=== PATIENT | female | born 1985 | race African-American/Black ===

== ENCOUNTER 2020-10-11 11:20 | Emergency (ER) | payer OTHER ==
[~2020-10-11] VITALS: Ht 165.1 cm; Wt 77.3 kg
[2020-10-11] MEDS ORDERED: IBUPROFEN 600 MG TABLET PO ONE (12:00)
[2020-10-11 12:50] VITALS: BP 128/67
== END 2020-10-11 13:00 | disposition home or self-care (01) ==
LOC: EMS 11:35
DX: S83.8X2A Sprain of other specified parts of left knee, initial encounter (principal); F12.90 Cannabis use, unspecified, uncomplicated; F17.210 Nicotine dependence, cigarettes, uncomplicated; V49.9XXA Car occupant (driver) (passenger) injured in unspecified traffic accident, initial encounter; Y93.89 Activity, other specified; Y92.413 State road as the place of occurrence of the external cause; Y99.8 Other external cause status

== ENCOUNTER 2021-05-31 08:52 | Emergency (ER) | payer OTHER ==
[~2021-05-31] VITALS: Ht 162.6 cm; Wt 91.8 kg
[2021-05-31 09:27] LABS: BASOPHILS % (AUTO) 0.9 % (0.0-2.0); EOSINOPHILS % (AUTO) 0.7 % (1.0-6.0); HEMOGLOBIN 12.1 g/dL (12.0-16.0); LYMPHOCYTES # (AUTO) 3.6 K/uL (1.0-4.8); LYMPHOCYTES % (AUTO) 32.7 % (22.0-44.0); MEAN CORPUSCULAR HEMOGLOBIN 27.8 pg (26.0-34.0); MEAN CORPUSCULAR HGB CONC 32.7 G/dL (31.0-37.0); MEAN CORPUSCULAR VOLUME 85 fL (80-100); MONOCYTES # (AUTO) 0.6 K/uL (0.1-1.0); MONOCYTES % (AUTO) 5.4 % (2.0-9.0); NEUTROPHILS # (AUTO) 6.6 K/uL (1.8-7.7); NEUTROPHILS % (AUTO) 60.3 % (40.0-70.0); PLATELET COUNT (AUTO) 281 K/uL (150-450); RED BLOOD CELL COUNT(AUTO) 4.36 MIL/uL (4.00-5.20); RED CELL DISTRIBUTION WIDTH 15.5 % (11.5-14.5)
[2021-05-31 09:37] LABS: ANION GAP 9 mmol/L (8-16); CALCIUM, TOTAL 8.7 mg/dL (8.8-10.5); CARBON DIOXIDE 29 mmol/L (22-29); CHLORIDE 106 mmol/L (98-107); CREATININE 0.91 mg/dL (0.60-1.30); GLOMERULAR FILTR. RATE CALC > 60 mL/min (>60); GLUCOSE,RANDOM 106 mg/dL (70-110); SODIUM SERUM 144 mmol/L (136-145); UREA NITROGEN, BLOOD 12 mg/dL (7-18)
[2021-05-31 09:50] LABS: APPEARANCE,URINE CLEAR (CLEAR); BILIRUBIN,URINE NEGATIVE (NEGATIVE); GLUCOSE, URINE (UA) NEGATIVE (NEGATIVE); KETONES,URINE NEGATIVE (NEGATIVE); LEUKOCYTE ESTERASE ,URINE LARGE (NEGATIVE); NITRATE,URINE NEGATIVE (NEGATIVE); OCCULT BLOOD,URINE MODERATE (NEGATIVE); PROTEIN,URINE NEGATIVE (NEGATIVE); UROBILINOGEN,URINE 0.2 mg/dL (<=1.0)
[2021-05-31 09:50] LABS: ALANINE AMINOTRANSFERASE 31 U/L (12-78); ALBUMIN 3.5 g/dL (3.4-5.0); ALKALINE PHOSPHATASE 73 U/L (46-116); ASPARTATE AMINOTRANSFERASE 22 U/L (15-37); BILIRUBIN,TOTAL 0.2 mg/dL (0.1-1.0); HCG,QUANTITATIVE < 1 mIU/mL (0-6); LIPASE 92 U/L (73-393); TOTAL PROTEIN, SERUM 7.6 g/dL (6.4-8.2)
[2021-05-31] MEDS ORDERED: KETOROLAC TROMETHAMINE 30 MG/ML VIAL IVP ONE (10:00)
[2021-05-31] MEDS ORDERED: IOHEXOL 350 MG/ML 100 ML VIAL ONE (10:13)
[2021-05-31] MEDS ORDERED: SODIUM CHLORIDE 0.9% 100 ML ONE (10:13)
[2021-05-31 10:19] LABS: BACTERIA,URINE Few /HPF (None Seen); SQUAMOUS EPITHELIAL CELL,UR Moderate /LPF (None Seen)
[2021-05-31 10:50] VITALS: BP 129/65
[2021-05-31 12:17] LABS: APPEARANCE,URINE CLEAR (CLEAR); BILIRUBIN,URINE NEGATIVE (NEGATIVE); GLUCOSE, URINE (UA) NEGATIVE (NEGATIVE); KETONES,URINE NEGATIVE (NEGATIVE); LEUKOCYTE ESTERASE ,URINE NEGATIVE (NEGATIVE); NITRATE,URINE NEGATIVE (NEGATIVE); OCCULT BLOOD,URINE TRACE (NEGATIVE); PROTEIN,URINE NEGATIVE (NEGATIVE); UROBILINOGEN,URINE 0.2 mg/dL (<=1.0)
[2021-05-31 12:41] LABS: RBC,URINE 0-2 /HPF (0-2)
[2021-05-31 12:42] LABS: BACTERIA,URINE None Seen /HPF (None Seen); SQUAMOUS EPITHELIAL CELL,UR Rare /LPF (None Seen); WBC,URINE None Seen /HPF (0-5)
[2021-05-31] MEDS ORDERED: AZITHROMYCIN 500 MG TABLET PO ONE (12:45)
[2021-05-31] MEDS ORDERED: CefTRIAXone SODIUM 1 GM/VIAL IM ONE (12:45)
[2021-05-31] MEDS ORDERED: LIDOCAINE/PF 1% 2 ML VIAL IM ONE (12:45)
== END 2021-05-31 14:22 | disposition left against medical advice (07) ==
LOC: EMS 08:54
DX: N83.9 Noninflammatory disorder of ovary, fallopian tube and broad ligament, unspecified (principal); F17.210 Nicotine dependence, cigarettes, uncomplicated; F12.90 Cannabis use, unspecified, uncomplicated
CPT/HCPCS: 36415; 74177; 76856; 80053; 81001; 81002; 83690; 84702; 85025; 87077; 87086; 87186; 87491; 87591; 96372; 96374; 99285; A9575; J0696; J1885; J3490; J7050

== ENCOUNTER → 2024-07-10 | Emergency (ER) | payer OTHER ==
[~2024-07-10] VITALS: Ht 162.6 cm; Wt 86.4 kg
[~2024-07-10] MED LIST: CEPH-558 PO
[2024-07-10 12:54] VITALS: BP 104/67; PULSE 120; RESP 18; TEMP 97.9
== END | disposition left against medical advice (07) ==
LOC: EMS 12:27
DX: S01.81XA Laceration without foreign body of other part of head, initial encounter (principal); Z53.21 Procedure and treatment not carried out due to patient leaving prior to being seen by health care provider; Y04.0XXA Assault by unarmed brawl or fight, initial encounter; Y93.89 Activity, other specified; Y92.89 Other specified places as the place of occurrence of the external cause; Y99.8 Other external cause status

== ENCOUNTER 2024-07-11 23:44 | Emergency (ER) | payer OTHER ==
[~2024-07-11] VITALS: Ht 162.6 cm; Wt 86.4 kg
[2024-07-11 23:51] VITALS: BP 105/70; PULSE 89; RESP 20; TEMP 97.5
[2024-07-12] MEDS: TraMADol HCL 50 MG TABLET PO ONE (02:53)
[2024-07-12 03:08] LABS: APPEARANCE,URINE CLEAR (CLEAR); BILIRUBIN,URINE NEGATIVE (NEGATIVE); COLOR,URINE LIGHT YELLOW (YELLOW); GLUCOSE, URINE (UA) NEGATIVE (NEGATIVE); KETONES,URINE NEGATIVE (NEGATIVE); LEUKOCYTE ESTERASE ,URINE NEGATIVE (NEGATIVE); NITRATE,URINE NEGATIVE (NEGATIVE); PH,URINE 6.5 (5.0-8.0); PROTEIN,URINE NEGATIVE (NEGATIVE); SPECIFIC GRAVITIY, URINE 1.018 (1.003-1.030); UROBILINOGEN,URINE <=1.0 mg/dL (<=1.0)
[2024-07-12 03:14] LABS: HCG,QUAL URINE NEGATIVE (NEGATIVE); OCCULT BLOOD,URINE N (NEGATIVE)
[2024-07-12] MEDS: LIDOCAINE 1% 10 ML VIAL SQ ONE (05:01)
[2024-07-12] MEDS ORDERED: CEPH-558 PO (05:06)
[2024-07-12] MEDS: PERTUSS(ACELL),DIPH,TET/PF 0.5 ML SYRINGE [ADULT] IM. ONE (05:33)
== END 2024-07-12 05:42 | disposition home or self-care (01) ==
LOC: EMS 23:44
DX: S01.81XA Laceration without foreign body of other part of head, initial encounter (principal); S20.213A Contusion of bilateral front wall of thorax, initial encounter; F17.210 Nicotine dependence, cigarettes, uncomplicated; F12.90 Cannabis use, unspecified, uncomplicated; Z98.890 Other specified postprocedural states; Y04.8XXA Assault by other bodily force, initial encounter; Y93.89 Activity, other specified; Y92.89 Other specified places as the place of occurrence of the external cause; Y99.8 Other external cause status
CPT/HCPCS: 99285; 81003; 84703; 70450; 71111; 96372; J3490; 90715; 99284

== ENCOUNTER 2025-09-20 12:24 | Emergency (ER) | payer OTHER ==
[~2025-09-20] VITALS: Ht 162.6 cm; Wt 86.4 kg
[2025-09-20 12:26] VITALS: TEMP 98.2
[2025-09-20 12:52] LABS: PLATELET COUNT (AUTO) 299 K/uL (150-450); RED BLOOD CELL COUNT(AUTO) 4.40 MIL/uL (4.00-5.20); RED CELL DISTRIBUTION WIDTH 16.0 % (11.5-14.5); WHITE BLOOD COUNT (AUTO) 5.8 K/uL (4.5-11.0)
[2025-09-20 13:00] VITALS: BP 119/67; PULSE 73; RESP 18; O2SAT 99
[2025-09-20 13:02] LABS: APPEARANCE,URINE CLEAR (CLEAR); GLUCOSE, URINE (UA) NEGATIVE (NEGATIVE); LEUKOCYTE ESTERASE ,URINE TRACE (NEGATIVE); NITRATE,URINE POSITIVE (NEGATIVE); OCCULT BLOOD,URINE TRACE (NEGATIVE); SPECIFIC GRAVITIY, URINE 1.018 (1.003-1.030)
[2025-09-20 13:14] LABS: SQUAMOUS EPITHELIAL CELL,UR Few /LPF (None Seen)
[2025-09-20 13:18] LABS: SODIUM SERUM 138 mmol/L (136-145)
[2025-09-20 13:23] LABS: CALCIUM, TOTAL 8.6 mg/dL (8.8-10.5); CREATININE 0.97 mg/dL (0.60-1.30); GLOMERULAR FILTR. RATE CALC > 60 mL/min (>60); GLUCOSE,RANDOM 127 mg/dL (70-110); UREA NITROGEN, BLOOD 8 mg/dL (7-18)
[2025-09-20] MEDS: HYDROCODONE/ACETAMINOPHEN 5-325 MG TABLET PO ONE (14:54)
[2025-09-20] MEDS: IBUPROFEN 600 MG TABLET PO ONE (14:55)
[2025-09-20] MEDS ORDERED: HYDR-4062 PO (15:13)
[2025-09-20] MEDS ORDERED: POLY119P3 PO (15:13)
[2025-09-20] MEDS ORDERED: ONDA-104 PO (15:13)
[2025-09-20] MEDS ORDERED: IBUP-1554 PO (15:13)
== END 2025-09-20 15:32 | disposition home or self-care (01) ==
LOC: EMS 12:24
DX: R10.32 Left lower quadrant pain (principal); R30.0 Dysuria; F12.90 Cannabis use, unspecified, uncomplicated; F17.210 Nicotine dependence, cigarettes, uncomplicated; Z98.890 Other specified postprocedural states
CPT/HCPCS: 76856; 80048; 81001; 83690; 84703; 85025; 87077; 87086; 87186; 99284

== ENCOUNTER 2025-10-20 17:33 | Emergency (ER) | payer OTHER ==
[~2025-10-20] VITALS: Ht 165.1 cm; Wt 84.1 kg
[~2025-10-20 17:33] MED LIST changes: -CEPH-558 PO; +HYDR-4062 PO; +IBUP-1554 PO; +ONDA-104 PO; +POLY119P3 PO
[2025-10-20] MEDS: KETOROLAC TROMETHAMINE 30 MG/ML VIAL IM ONE (18:26)
[2025-10-20] MEDS: ACETAMINOPHEN 500 MG TABLET PO ONE (18:26)
[2025-10-20] MEDS ORDERED: IBUP-1492 PO (18:33)
[2025-10-20] MEDS ORDERED: ACET-3385 PO (18:33)
[2025-10-20 23:30] VITALS: BP 120/81; PULSE 79; RESP 16; TEMP 98.3; O2SAT 100
== END 2025-10-21 03:00 | disposition home or self-care (01) ==
LOC: EMS 17:34
DX: S93.402A Sprain of unspecified ligament of left ankle, initial encounter (principal); F17.210 Nicotine dependence, cigarettes, uncomplicated; F12.90 Cannabis use, unspecified, uncomplicated; Z98.890 Other specified postprocedural states; W10.8XXA Fall (on) (from) other stairs and steps, initial encounter; Y93.01 Activity, walking, marching and hiking; Y92.89 Other specified places as the place of occurrence of the external cause; Y99.8 Other external cause status
CPT/HCPCS: 99284; 73610; 73630; 96372; J1885